=== PATIENT | female | born 1975 ===

== ENCOUNTER 2017-10-09 19:56 | Emergency (ER) | payer BC ==
[2017-10-09 20:24] VITALS: TEMP 98.8
--- NOTE | 2017-10-09 20:52 | C.PDOC ---
History Of Present Illness 42-year-old female, presents to the emergency department with complaints of a heavy period that started yesterday associated with mild abdominal discomfort. Patient woke up at 4am this morning, and developed dizziness and light headedness with continued heavy bleeding. Pt notes calling out for her daughter followed by brief syncopal episode, hitting her right hip and low abdominal pain on the top. States she went back to bed, and for the rest of the day, she continued to feel light headedness, prompting visit. Denies any nausea/vomiting , back pain, fever or chills. Time Seen by Provider: 10/09/17 20:46 Chief Complaint (Nursing): Dizziness/Lightheaded History Per: Patient History/Exam Limitations: no limitations Past Medical History Reviewed: Historical Data, Nursing Documentation, Vital Signs Vital Signs: Last Vital Signs Temp 98.8 F 10/09/17 20:17 Pulse 81 10/09/17 20:17 Resp 22 10/09/17 20:17 BP 147/95 H 10/09/17 20:17 Pulse Ox 100 10/09/17 21:13 - Medical History PMH: Anemia Denies: Chronic Kidney Disease Family History: States: No Known Family Hx - Social History Hx Alcohol Use: No Hx Substance Use: No - Immunization History Hx Tetanus Toxoid Vaccination: No Hx Influenza Vaccination: No Hx Pneumococcal Vaccination: No Review Of Systems Cardiovascular: Positive for: Light Headedness Gastrointestinal: Negative for: Nausea, Vomiting Genitourinary: Positive for: Vaginal Bleeding Neurological: Positive for: Dizziness. Negative for: Weakness, Numbness, Headache Physical Exam - Physical Exam Appears: Non-toxic, No Acute Distress Skin: Normal Color, Warm, Dry, No Rash Head: Atraumatic, Normacephalic Eye(s): bilateral: Normal Inspection, PERRL, EOMI Nose: Normal Oral Mucosa: Moist Lips: Normal Appearing Neck: Normal ROM Chest: Symmetrical Cardiovascular: Rhythm Regular, No Murmur Respiratory: Normal Breath Sounds, No Accessory Muscle Use Gastrointestinal/Abdominal: Soft, Tenderness (mild suprapubic tenderness), No Guarding, No Rebound, Other Extremity: No Deformity, No Swelling, Other (echymosis to right lower pelvic area and R anterior hip ) Neurological/Psych: Oriented x3, Normal Speech ED Course And Treatment - Laboratory Results Result Diagrams: 10/09/17 21:20 10/09/17 21:20 Lab Interpretation: No Acute Changes O2 Sat by Pulse Oximetry: 100 Pulse Ox Interpretation: Normal (RA) - CT Scan/US pelvic ultrasound Other Rad Studies (CT/US): Read By Radiologist CT/US Interpretation: Verbal report recieved from radiologist. Small hypoechoic area in the endometrial canal possibly a polyp, no acute findings. Progress Note: Patient recieved IV fluids in ED. Reevaluation Time: 00:25 Reassessment Condition: Improved Disposition Counseled Patient/Family Regarding: Studies Performed, Diagnosis, Need For Followup, Rx Given - Disposition Referrals: Jonathan Burleson MD [Staff Provider] - Disposition: HOME/ ROUTINE Disposition Time: 00:26 Condition: IMPROVED Prescriptions: Naproxen [Naprosyn] 1 tab PO BID PRN #25 tab PRN Reason: Pain Instructions: Heavy Periods Forms: [employer] (Danish) Print Language: TAMAZIGHT - Clinical Impression Clinical Impression: Syncope, Heavy menstrual bleeding - Scribe Statement The provider has reviewed the documentation as recorded by the Scribe (Alysa Forbes) All medical record entries made by the Scribe were at my direction and personally dictated by me. I have reviewed the chart and agree that the record accurately reflects my personal performance of the history, physical exam, medical decision making, and the department course for this patient. I have also personally directed, reviewed, and agree with the discharge instructions and disposition.
[2017-10-09] MEDS ORDERED: Sodium Chloride 0.9% 1,000 ML IV ONE (21:03)
[2017-10-09 21:30] LABS: BASO # 0.1 K/uL (0.0-0.2); BASO % 0.6 % (0.0-2.0); EOS # 0.2 K/uL (0.0-0.7); EOS % 2.2 % (0.0-4.0); HEMOGLOBIN 13.5 g/dL (11.0-16.0); LYMPH # 2.3 K/uL (1.0-4.3); MEAN CELL VOLUME 88.8 fL (81.0-99.0); MEAN CORPUSCULAR HEMOGLOBIN 31.1 pg (27.0-31.0); MEAN PLATELET VOLUME 7.7 fL (7.2-11.7); MONO # 0.5 K/uL (0.0-0.8); MONO % 5.6 % (0.0-10.0); NEUT # 5.2 K/uL (1.8-7.0); NEUT % 63.6 % (50.0-75.0); RBC 4.36 Mil/uL (3.80-5.20); WHITE BLOOD COUNT 8.2 K/uL (4.8-10.8)
[2017-10-09] MEDS ORDERED: Sodium Chloride 0.9% 1,000 ML ONE (21:37)
[2017-10-09 21:42] LABS: ALB/GLOB RATIO 1.3 (1.0-2.1); ALBUMIN 4.1 g/dL (3.5-5.0); ALT/SGPT 38 U/L (9-52); AST/SGOT 23 U/L (14-36); BLOOD UREA NITROGEN 14 mg/dL (7-17); CALCIUM 9.3 mg/dl (8.6-10.4); GFR AFRICAN-AMERICAN > 60; GFR NON-AFRICAN AMERICAN > 60
[2017-10-10 00:57] VITALS: BP 100/66; PULSE 65; RESP 20; O2SAT 99
--- NOTE | 2017-10-10 13:09 | US ---
Date of service: 10/09/2017 PROCEDURE: HISTORY: vaginal bleeding with pelvic pain 42-year-old female LMP 08/26/2017. Beta HCG levels are are apparently less than 2.39. COMPARISON: None TECHNIQUE: Transabdominal and transvaginal technique performed. FINDINGS: Uterus is anteverted. It measures 9.2 x 4.2 x 6.0 cm. No uterine masses are noted. Endometrial thickness is 5.3 mm. This thickness includes a select 1 x 3 mm focus of flat like fluid here in the intrauterine cavity. Liquified blood is 1 consideration. Conceivably a tiny very early intrauterine gestation cannot be excluded and correlation with beta HCG levels is needed. Cervical length is unremarkable at 3.1 cm. No free fluid in the cul-de-sac noted. Right ovary measures 2.5 x 2.0 x 2.7 cm. Ovarian flow present and unremarkable. Left ovary not visualized patient states left ovary was removed what reason unknown. IMPRESSION: No embryonic pole identified. A tiny anechoic focus of fluid within the intrauterine cavity is noted. This is nonspecific tiny focus of liquified blood is 1 consideration. A very early intrauterine gestation is another. No embryonic pole or yolk sac is visualized. Correlation with beta HCG levels is advised. Consider follow-up transvaginal ultrasound imaging in 2 to 4 weeks for further evaluation.
== END 2017-10-10 01:06 | disposition home or self-care (01) ==
LOC: C.ER 19:56
DX: R55 Syncope and collapse (principal); N92.0 Excessive and frequent menstruation with regular cycle
CPT/HCPCS: 76830; 76856; 80053; 84702; 85025; 96360; 96374; J1885; J7030